=== PATIENT | male | born 1985 | race Hispanic/Latino ===

== ENCOUNTER 2018-11-18 19:45 | Emergency (ER) | payer OTHER, SELFPAY | END 2018-11-18 20:16 | disposition home or self-care (01) | LOC: ERS 19:45 | DX: J11.1 Influenza due to unidentified influenza virus with other respiratory manifestations (principal); F17.210 Nicotine dependence, cigarettes, uncomplicated | CPT/HCPCS: 99283 ==

== ENCOUNTER 2018-11-22 21:34 | Emergency (ER) | payer SELFPAY ==
--- NOTE | 2018-11-22 23:23 | RAD ---
TWO VIEWS CHEST: 11/22/18 HISTORY: Cough. COMPARISON: 11/30/16. FINDINGS: Normal cardiac silhouette. The lungs and pleural spaces are clear. No pneumothorax or osseous abnorma lities. IMPRESSION: No acute cardiopulmonary process. POS: [facility]LY[facility]
== END 2018-11-22 23:24 | disposition home or self-care (01) ==
LOC: ERS 21:34
DX: J11.1 Influenza due to unidentified influenza virus with other respiratory manifestations (principal); F17.210 Nicotine dependence, cigarettes, uncomplicated
CPT/HCPCS: 71046

== ENCOUNTER 2019-06-21 12:27 | Emergency (ER) | payer OTHER, SELFPAY ==
--- NOTE | 2019-06-21 12:57 | RAD ---
Radiograph right ankle 3 views: DATE: 06/21/2019 HISTORY: 34-year-old male with "injury." Lateral ankle pain since last week. COMPARISON: 03/09/2017 FINDINGS: No acute fracture is identified. Ankle mortise is congruent. Talar dome is maintained. Lateral metall ic plate and screws from distal fibular diaphysis to lateral malleolus. Small metallic plate at posterior medial cortical surface of distal tibial metaphysis. Transversely oriented lucency track fr om previously removed screw across distal tibial metaphysis and adjacent portion of distal fibular metadiaphysis. No significant interval change detected in the bones, but there is focal soft tissue s welling lateral to the distal fibular metadiaphysis. IMPRESSION: 1.) No acute fracture. 2) status post open reduction internal fixation of distal fibula, old. 3) focal soft tissue swelling lateral aspect of upper ankle.
== END 2019-06-21 13:12 | disposition home or self-care (01) ==
LOC: ERS 12:27
DX: S93.401A Sprain of unspecified ligament of right ankle, initial encounter (principal); F17.210 Nicotine dependence, cigarettes, uncomplicated; X50.1XXA Overexertion from prolonged static or awkward postures, initial encounter

== ENCOUNTER 2019-07-03 20:26 | Emergency (ER) | payer SELFPAY ==
[2019-07-03] MEDS ORDERED: Lidocaine 1% w/Epinephrine 1:100K 20 ML VIAL ONE (21:07)
--- NOTE | 2019-07-03 21:46 | RAD ---
Right ankle 3 view Indication: Right ankle wound FINDINGS: Reference made to 06/21/2019 exam. Plate and screw fixation of distal right fibula with adjacent prior screw track is noted. Hardware is similar. No new osseous abnormality. Stable focal soft tissue prominence of the lateral aspect of the distal right leg. Impression: Stable appearing postoperative distal right leg. Transcribed Date/Time: 07/03/2019 10:02 PM
[2019-07-03 22:06] LABS: #Basophils 0.1 thou/uL (0.0-0.2); #Eosinphils 0.3 thou/uL (0.0-0.7); #Lymphocytes 2.4 thou/uL (1.20-3.40); #Monocytes 0.7 thou/uL (0.11-0.59); #Neutrophils 7.4 thou/uL (1.40-6.50); %Basophils 0.8 % (0.0-1.0); %Eosinophils 2.9 % (0.0-10.0); %Lymphocytes 21.8 % (21.0-51.0); %Monocytes 6.1 % (0.0-10.0); %Neutrophils 68.4 % (42.0-75.0); Hemoglobin 14.1 g/dL (14.0-18.0); Mean Corpuscular HGB CONC 34.9 g/dL (32.0-36.0); Mean Corpuscular Hemoglobin 31.4 pg (27.0-31.0); Mean Platelet Volume 9.3 fL (7.4-10.4); Platelet Count 209 thou/uL (130-400); RBC Distribution Width 11.7 % (11.5-14.5); Red Blood Cell (RBC) Count 4.51 mill/uL (4.70-6.10); White Blood Cell (WBC) Count 10.8 thou/uL (4.8-10.8)
[2019-07-03 22:13] LABS: ALT (SGPT) 22 U/L (8-55); AST (SGOT) 21 U/L (5-34); Albumin 4.2 g/dL (3.5-5.0); Alkaline Phosphatase 95 U/L (40-110); Anion Gap 12 mmol/L (10-20); BUN (Urea Nitrogen) 17 mg/dL (8.9-20.6); Bilirubin, Total 0.4 mg/dL (0.2-1.2); Calc. Creatinine Clearance 0 mL/min (70-130); Calcium 8.9 mg/dL (7.8-10.44); Carbon Dioxide 26 mmol/L (22-29); Chloride 106 mmol/L (98-107); Estimated GFR-MDRD 89; Globulin 3.1 g/dL (2.4-3.5); Glucose 120 mg/dL (70-105); Potassium 3.9 mmol/L (3.5-5.1); Protein, Total 7.3 g/dL (6.0-8.3); Sodium 140 mmol/L (136-145)
== END 2019-07-03 22:59 | disposition home or self-care (01) ==
LOC: ERS 20:26
DX: L02.415 Cutaneous abscess of right lower limb (principal); F17.210 Nicotine dependence, cigarettes, uncomplicated
CPT/HCPCS: 10060; 36415; 80053; 83605; 85025; 87040; 87149

== ENCOUNTER 2020-01-12 09:26 | Emergency (ER) | payer SELFPAY ==
[2020-01-12] MEDS ORDERED: Lidocaine 1% w/Epinephrine 1:100K 20 ML VIAL ONE (09:47)
[2020-01-12] MEDS ORDERED: Adacel (T-DAP) 0.5 ML SYRINGE ONE (10:54)
--- NOTE | 2020-01-12 11:03 | RAD ---
RIGHT ANKLE 3 VIEWS: HISTORY: Boil on ankle. FINDINGS: Postoperative changes of the ankle are noted. Retention device is seen across the tibia and fibula a s well as a plate and screws along the distal fibula. Soft tissue changes are seen adjacent to the d istal fibula, but I do not see any definite underlying changes that would suggest osteomyelitis. IMPRESSION: Postop change of the distal fibula. No definitive evidence for underlying osteomyelitis. POS: [facility]ATSON
== END 2020-01-12 11:15 | disposition home or self-care (01) ==
LOC: ERS 09:26
DX: L02.415 Cutaneous abscess of right lower limb (principal); Z79.899 Other long term (current) drug therapy
CPT/HCPCS: 10060; 90471; 90715

== ENCOUNTER 2020-05-12 07:12 | Emergency (ER) | payer SELFPAY ==
[2020-05-12] MEDS ORDERED: Ketorolac Tromethamine 30 MG/ML VIAL ONE (07:32)
[2020-05-12] MEDS ORDERED: Acetaminophen 500 MG TAB ONE (07:32)
--- NOTE | 2020-05-12 07:56 | RAD ---
XR Ankle Rt 3 View STANDARD INDICATION: Increased medial ankle pain COMPARISON: January 12, 2020 FINDINGS: Bones: The healed instrumented fibular and lateral malleoli or fracture is unchanged. The radiolucent syndesmotic cable is unchanged in appearance. Ankle mortise: Symmetric. Talar Dome: Intact. Subtalar joint: Normal. Visualized hindfoot: Normal. Periarticular soft tissues: Normal. IMPRESSION: 1. No acute fracture or subluxation demonstrated. 2. Healed posttraumatic and postsurgical change of the right ankle
== END 2020-05-12 08:16 | disposition home or self-care (01) ==
LOC: ERS 07:12
DX: M25.471 Effusion, right ankle (principal)
CPT/HCPCS: 96372; J1885

== ENCOUNTER 2021-05-20 15:13 | Emergency (ER) | payer SELFPAY ==
[2021-05-20 15:48] LABS: Bacteria/HPF None Seen HPF (None Seen); Bilirubin Negative (Negative); Blood, Urine 1+ (Negative); Clarity Clear (Clear); Glucose, Urine (Dipstick) Normal (Negative); Ketone, Urine Trace mg/dL (Negative); Leukocyte Negative Leu/uL (Negative); Nitrite Negative (Negative); Protein, Urine (Dipstick) 100 mg/dL (Neg-Trace); RBC/HPF 0-3 HPF (0-3); Specific Gravity, Urine 1.023 (1.002-1.036); Squamous Epithelial 0-3 HPF (0-3); Urobilinogen Normal mg/dL (Less than 2)
[2021-05-20 15:55] LABS: #Lymphocytes 1.5 thou/uL (1.20-3.40); #Monocytes 0.8 thou/uL (0.11-0.59); #Neutrophils 7.2 thou/uL (1.40-6.50); %Basophils 0.1 % (0.0-1.0); %Eosinophils 0.3 % (0.0-10.0); %Lymphocytes 16.1 % (21.0-51.0); %Neutrophils 75.5 % (42.0-75.0); Hemoglobin 16.5 g/dL (14.0-18.0); Mean Corpuscular HGB CONC 35.7 g/dL (32.0-36.0); Mean Corpuscular Volume 89.6 fL (78.0-98.0); Mean Platelet Volume 9.1 fL (7.4-10.4); Platelet Count 200 thou/uL (130-400); RBC Distribution Width 11.7 % (11.5-14.5); Red Blood Cell (RBC) Count 5.18 mill/uL (4.70-6.10); White Blood Cell (WBC) Count 9.5 thou/uL (4.8-10.8)
[2021-05-20] MEDS ORDERED: Ondansetron ODT 4 MG TAB ONE (16:01)
[2021-05-20 16:14] LABS: ALT (SGPT) 31 U/L (8-55); AST (SGOT) 20 U/L (5-34); Albumin 4.3 g/dL (3.5-5.0); Alkaline Phosphatase 76 U/L (40-110); Anion Gap 16 mmol/L (10-20); BUN (Urea Nitrogen) 11 mg/dL (8.9-20.6); Bilirubin, Total 0.9 mg/dL (0.2-1.2); Calc. Creatinine Clearance 0 mL/min (70-130); Calcium 9.6 mg/dL (7.8-10.44); Carbon Dioxide 25 mmol/L (22-29); Chloride 97 mmol/L (98-107); Globulin 3.4 g/dL (2.4-3.5); Glucose 160 mg/dL (70-105); Lipase 4 U/L (8-78); Potassium 3.8 mmol/L (3.5-5.1); Protein, Total 7.7 g/dL (6.0-8.3); Sodium 134 mmol/L (136-145)
[2021-05-20] MEDS ORDERED: Ondansetron PF 4 MG/2 ML Vial ONE (17:22)
[2021-05-20] MEDS ORDERED: Promethazine HCl 25 MG/ML VIAL ONE (17:52)
== END 2021-05-20 18:50 | disposition home or self-care (01) ==
LOC: ERS 15:13
DX: U07.1 COVID-19 (principal)
CPT/HCPCS: 36415; 80053; 81003; 81015; 83690; 85025; 93005; 96365; 96372; 96375; J0500; J2405; J2550; Q0162

== ENCOUNTER 2021-09-29 12:24 | Emergency (ER) | payer SELFPAY, OTHER | END 2021-09-29 14:19 | disposition left against medical advice (07) | LOC: ERS 12:24 | DX: Z53.21 Procedure and treatment not carried out due to patient leaving prior to being seen by health care provider (principal) ==

== ENCOUNTER 2023-08-28 10:29 | Emergency (ER) | payer SELFPAY, OTHER ==
[2023-08-28] MEDS ORDERED: Ondansetron PF 4 MG/2 ML Vial ONE (11:56)
[2023-08-28 12:29] LABS: SARS-CoV-2 NAA Rapid Test Not Detected (NotDetected)
== END 2023-08-28 13:15 | disposition home or self-care (01) ==
LOC: ERS 10:29
DX: J10.1 Influenza due to other identified influenza virus with other respiratory manifestations (principal); E11.9 Type 2 diabetes mellitus without complications; F17.200 Nicotine dependence, unspecified, uncomplicated; Z20.822 Contact with and (suspected) exposure to COVID-19; Z79.84 Long term (current) use of oral hypoglycemic drugs
CPT/HCPCS: 96361; 96374; J2405

== ENCOUNTER 2023-08-28 21:19 | Inpatient (IN) | payer OTHER, SELFPAY ==
[2023-08-28 22:14] LABS: #Eosinphils 0.1 thou/uL (0.0-0.7); #Monocytes 0.5 thou/uL (0.11-0.59); #Neutrophils 4.4 thou/uL (1.40-6.50); %Basophils 0.3 % (0.0-1.0); %Eosinophils 1.3 % (0.0-10.0); %Lymphocytes 18.8 % (21.0-51.0); %Monocytes 8.4 % (0.0-10.0); %Neutrophils 70.9 % (42.0-75.0); Hematocrit 39.2 % (42.0-52.0); Hemoglobin 13.6 g/dL (14.0-18.0); Mean Corpuscular HGB CONC 34.7 g/dL (32.0-36.0); Mean Corpuscular Hemoglobin 31.2 pg (27.0-31.0); Mean Corpuscular Volume 89.9 fl (78.0-98.0); Platelet Count 151 10x3/uL (130-400); Red Blood Cell (RBC) Count 4.36 mill/uL (4.70-6.10); White Blood Cell (WBC) Count 6.2 10x3/uL (4.8-10.8)
[2023-08-28 22:29] LABS: ALT (SGPT) 14 U/L (8-55); AST (SGOT) 14 U/L (5-34); Albumin 3.7 g/dL (3.5-5.0); Alkaline Phosphatase 111 U/L (40-110); Anion Gap 16 mmol/L (10-20); BUN (Urea Nitrogen) 14 mg/dL (8.9-20.6); Bilirubin, Total 0.3 mg/dL (0.2-1.2); Calc. Creatinine Clearance 0 mL/min (70-130); Calcium 8.7 mg/dL (7.8-10.44); Carbon Dioxide 21 mmol/L (22-29); Chloride 100 mmol/L (98-107); Estimated GFR 106; Globulin 2.9 g/dL (2.4-3.5); Potassium 4.2 mmol/L (3.5-5.1); Protein, Total 6.6 g/dL (6.0-8.3); Sodium 133 mmol/L (136-145)
[2023-08-28 22:31] LABS: Glucose 539 mg/dL (70-105)
[2023-08-28 22:33] LABS: Troponin I 0.058 ng/mL (< 0.028)
[2023-08-28] MEDS ORDERED: Insulin Regular 300 UNITS/3 ML VIAL ONE (22:49)
[2023-08-28] MEDS ORDERED: Aspirin Chewable 81 MG TAB ONE (22:49)
[2023-08-28 23:37] LABS: Acetaminophen Less than 10 mcg/mL (10.0-30.0); Alcohol Less than 10.0 mg/dL (Less than 10); Salicylate Less than 8.0 mg/dL (15.0-30.0)
[2023-08-29] MEDS ORDERED: Dextrose 5% in Water 1,000 ML IV PRN (00:21)
[2023-08-29] MEDS ORDERED: Dextrose 50% Abboject 50 ML SYRINGE SLOW IVP PRN (00:21)
[2023-08-29] MEDS ORDERED: HumaLOG 300 UNITS/3 ML VIAL SC PRN ×2 (00:21)
[2023-08-29] MEDS ORDERED: Acetaminophen 325 MG TAB PO PRN (00:21)
[2023-08-29] MEDS ORDERED: Glucagon 1 MG/ML KIT IM PRN (00:21)
[2023-08-29] MEDS ORDERED: Ondansetron PF 4 MG/2 ML Vial IVP PRN (00:21)
[2023-08-29 01:19] LABS: Hemoglobin A1c 13.9 % (4.0-6.0)
[2023-08-29] MEDS ORDERED: Nitroglycerin 0.4 MG TAB (25 Tab Bottle) SL PRN (01:27)
[2023-08-29 03:01] LABS: Bacteria/HPF None Seen HPF (None Seen); Bilirubin Negative (Negative); Blood, Urine Negative (Negative); CAUTI Indications for Culture Fever or rigors; Clarity Clear (Clear); Glucose, Urine (Dipstick) Greater than 1000 mg/dL (Negative); Ketone, Urine 20 mg/dL (Negative); Leukocyte Negative Leu/uL (Negative); Nitrite Negative (Negative); Protein, Urine (Dipstick) Negative (Neg-Trace); RBC/HPF 0-3 HPF (0-3); Specific Gravity, Urine 1.033 (1.002-1.036); Squamous Epithelial None Seen HPF (0-3); Urobilinogen Normal mg/dL (Less than 2); WBC/HPF 0-3 HPF (0-3)
[2023-08-29 03:04] LABS: Urine Culture Reflex No No
[2023-08-29 03:06] LABS: Amphetamine Not Detected (NotDetected); Barbiturates Screen Not Detected (NotDetected); Benzodiazepine Screen Not Detected (NotDetected); Cocaine Metabolite Screen Not Detected (NotDetected); Methadone Not Detected (NotDetected); Methamphetamine Not Detected (NotDetected); Opiate Screen Not Detected (NotDetected); Oxycodone Screen Not Detected (NotDetected); Phencyclidine (PCP) Not Detected (NotDetected); THC/Cannabinoid Screen Not Detected (NotDetected); Tricyclic Screen Not Detected (NotDetected)
[2023-08-29 08:37] LABS: #Eosinphils 0.1 thou/uL (0.0-0.7); #Monocytes 0.6 thou/uL (0.11-0.59); %Basophils 0.4 % (0.0-1.0); %Eosinophils 1.5 % (0.0-10.0); %Lymphocytes 19.4 % (21.0-51.0); %Neutrophils 70.6 % (42.0-75.0); Hematocrit 40.8 % (42.0-52.0); Hemoglobin 13.6 g/dL (14.0-18.0); Mean Corpuscular HGB CONC 33.3 g/dL (32.0-36.0); Mean Corpuscular Hemoglobin 30.6 pg (27.0-31.0); Mean Corpuscular Volume 91.9 fl (78.0-98.0); Platelet Count 132 10x3/uL (130-400); RBC Distribution Width 12.2 % (11.5-14.5); Red Blood Cell (RBC) Count 4.44 mill/uL (4.70-6.10); White Blood Cell (WBC) Count 7.1 10x3/uL (4.8-10.8)
[2023-08-29 08:55] LABS: Anion Gap 11 mmol/L (10-20); BUN (Urea Nitrogen) 11 mg/dL (8.9-20.6); Calc. Creatinine Clearance 128 mL/min (70-130); Calcium 8.9 mg/dL (7.8-10.44); Carbon Dioxide 29 mmol/L (22-29); Cardiac Risk 4.9 (Less than 4.5); Chloride 103 mmol/L (98-107); Cholesterol 128 mg/dl (< 200 Desired); Estimated GFR 120; Glucose 217 mg/dL (70-105); HDL Cholesterol 26 mg/dL (>60 Neg Risk); LDL Cholesterol, Calculated 80 mg/dL; Potassium 4.4 mmol/L (3.5-5.1); Sodium 139 mmol/L (136-145); Triglycerides 109 mg/dL (Less than 150)
[2023-08-29 08:59] LABS: Troponin I 0.064 ng/mL (< 0.028)
[2023-08-29] MEDS ORDERED: Famotidine 20 MG TAB ONE (09:10)
[2023-08-29] MEDS ORDERED: Aspirin Chewable 81 MG TAB ONE (09:10)
[2023-08-29] MEDS: Insulin Glargine 30 UNITS/0.3 ML VIAL SC SCH ×2 (09:23→19:46)
[2023-08-29] MEDS: Famotidine 20 MG TAB PO SCH ×2 (09:23→19:47)
[2023-08-29] MEDS: Aspirin 81 mg Enteric Coated Tablet PO SCH (09:23)
[2023-08-29] MEDS: Oseltamivir 75 MG CAP PO SCH ×2 (09:32→19:47)
[2023-08-29 15:59] VITALS: BMI 21.7
[2023-08-30] MEDS: Aspirin 81 mg Enteric Coated Tablet PO SCH (08:24)
[2023-08-30] MEDS: Famotidine 20 MG TAB PO SCH ×2 (08:24→21:22)
[2023-08-30] MEDS: Oseltamivir 75 MG CAP PO SCH ×2 (08:24→21:22)
[2023-08-30] MEDS: Insulin Glargine 30 UNITS/0.3 ML VIAL SC SCH ×2 (08:25→21:22)
[2023-08-30 08:55] LABS: Amphetamine Not Detected (NotDetected); Barbiturates Screen Not Detected (NotDetected); Benzodiazepine Screen Not Detected (NotDetected); Cocaine Metabolite Screen Detected (NotDetected); Methadone Not Detected (NotDetected); Methamphetamine Not Detected (NotDetected); Opiate Screen Not Detected (NotDetected); Oxycodone Screen Not Detected (NotDetected); Phencyclidine (PCP) Not Detected (NotDetected); THC/Cannabinoid Screen Not Detected (NotDetected); Tricyclic Screen Not Detected (NotDetected)
[2023-08-31] MEDS: Aspirin 81 mg Enteric Coated Tablet PO SCH (08:52)
[2023-08-31] MEDS: Insulin Glargine 30 UNITS/0.3 ML VIAL SC SCH (08:52)
[2023-08-31] MEDS: Oseltamivir 75 MG CAP PO SCH (08:52)
[2023-08-31] MEDS: Famotidine 20 MG TAB PO SCH (08:53)
[2023-08-31 09:07] VITALS: BP 100/69; TEMP 98.1
== END 2023-08-31 15:00 | disposition home or self-care (01) | DRG 918 ==
LOC: ERS 21:19 → 2SW 08-29 00:26 → ERHOLD 08-29 00:26 → INTOOBSV 08-29 00:26 → 2SW 08-29 15:17 → OBSVTOIN 08-30 15:41
PROVIDERS: ADMIT Student in an Organized Health Care Education/Training Program; ATTEND Internal Medicine
DX: T40.5X1A Poisoning by cocaine, accidental (unintentional), initial encounter (principal); J10.1 Influenza due to other identified influenza virus with other respiratory manifestations; R07.89 Other chest pain; F17.210 Nicotine dependence, cigarettes, uncomplicated; E11.9 Type 2 diabetes mellitus without complications; F10.90 Alcohol use, unspecified, uncomplicated; Z79.899 Other long term (current) drug therapy; Z98.890 Other specified postprocedural states; Z71.51 Drug abuse counseling and surveillance of drug abuser; Z71.6 Tobacco abuse counseling
CPT/HCPCS: 36415; 36416; 71045; 80048; 80053; 80061; 80306; 80307; 81001; 83036; 84484; 85025; 93005; 93306; 96372; 96374; G0378; J1650; J1815

== ENCOUNTER 2023-10-30 22:36 | Emergency (ER) | payer SELFPAY ==
[2023-10-31 01:42] LABS: #Basophils 0.1 thou/uL (0.0-0.2); #Eosinphils 0.2 thou/uL (0.0-0.7); #Monocytes 0.4 thou/uL (0.11-0.59); #Neutrophils 4.9 thou/uL (1.40-6.50); %Basophils 0.7 % (0.0-1.0); %Eosinophils 2.1 % (0.0-10.0); %Monocytes 5.1 % (0.0-10.0); %Neutrophils 57.7 % (42.0-75.0); Hematocrit 41.9 % (42.0-52.0); Hemoglobin 14.1 g/dL (14.0-18.0); Mean Corpuscular HGB CONC 33.7 g/dL (32.0-36.0); Mean Corpuscular Hemoglobin 30.5 pg (27.0-31.0); Mean Corpuscular Volume 90.7 fl (78.0-98.0); Mean Platelet Volume 11.2 fL (7.4-10.4); Platelet Count 188 10x3/uL (130-400); RBC Distribution Width 12.6 % (11.5-14.5); Red Blood Cell (RBC) Count 4.62 mill/uL (4.70-6.10); White Blood Cell (WBC) Count 8.5 10x3/uL (4.8-10.8)
[2023-10-31 02:13] LABS: ALT (SGPT) 17 U/L (8-55); AST (SGOT) 17 U/L (5-34); Albumin 3.9 g/dL (3.5-5.0); Alkaline Phosphatase 115 U/L (40-110); Anion Gap 13 mmol/L (10-20); BUN (Urea Nitrogen) 23 mg/dL (8.9-20.6); Bilirubin, Total 0.2 mg/dL (0.2-1.2); Calc. Creatinine Clearance 0 mL/min (70-130); Calcium 9.2 mg/dL (7.8-10.44); Carbon Dioxide 27 mmol/L (22-29); Chloride 99 mmol/L (98-107); Estimated GFR 99; Globulin 2.5 g/dL (2.4-3.5); Glucose 344 mg/dL (70-105); Potassium 4.4 mmol/L (3.5-5.1); Protein, Total 6.4 g/dL (6.0-8.3); Sodium 135 mmol/L (136-145)
[2023-10-31] MEDS ORDERED: predniSONE 20 MG TAB ONE (02:41)
[2023-10-31] MEDS ORDERED: valACYclovir 500 MG TAB ONE ×2 (02:42→02:43)
== END 2023-10-31 02:52 | disposition home or self-care (01) ==
LOC: ERS 22:36
DX: G51.0 Bell's palsy (principal); E11.9 Type 2 diabetes mellitus without complications; Z79.84 Long term (current) use of oral hypoglycemic drugs
CPT/HCPCS: 36415; 70450; 80053; 85025; J7512

== ENCOUNTER 2023-11-05 13:06 | Inpatient (IN) | payer SELFPAY ==
[2023-11-05] MEDS ORDERED: Aspirin Chewable 81 MG TAB ONE (14:57)
[2023-11-05 15:59] LABS: #Monocytes 0.2 thou/uL (0.11-0.59); #Neutrophils 10.8 thou/uL (1.40-6.50); %Basophils 0.2 % (0.0-1.0); %Eosinophils 0.1 % (0.0-10.0); %Lymphocytes 7.6 % (21.0-51.0); %Monocytes 1.6 % (0.0-10.0); %Neutrophils 90.2 % (42.0-75.0); Hematocrit 42.9 % (42.0-52.0); Hemoglobin 14.9 g/dL (14.0-18.0); Mean Corpuscular HGB CONC 34.7 g/dL (32.0-36.0); Mean Corpuscular Hemoglobin 31.2 pg (27.0-31.0); Mean Corpuscular Volume 89.9 fl (78.0-98.0); Mean Platelet Volume 11.7 fL (7.4-10.4); Platelet Count 221 10x3/uL (130-400); RBC Distribution Width 12.7 % (11.5-14.5); Red Blood Cell (RBC) Count 4.77 mill/uL (4.70-6.10)
[2023-11-05 16:27] LABS: Troponin I 0.164 ng/mL (< 0.028)
[2023-11-05 16:29] LABS: ALT (SGPT) 17 U/L (8-55); AST (SGOT) 16 U/L (5-34); Alkaline Phosphatase 110 U/L (40-110); Anion Gap 17 mmol/L (10-20); BUN (Urea Nitrogen) 19 mg/dL (8.9-20.6); Bilirubin, Total 0.3 mg/dL (0.2-1.2); Calc. Creatinine Clearance 0 mL/min (70-130); Calcium 9.1 mg/dL (7.8-10.44); Carbon Dioxide 24 mmol/L (22-29); Chloride 94 mmol/L (98-107); Critical Call Chemistry NUR.MC19@1628; Estimated GFR 100; Globulin 2.9 g/dL (2.4-3.5); Glucose 461 mg/dL (70-105); Lipase 22 U/L (8-78); Potassium 5.1 mmol/L (3.5-5.1); Protein, Total 6.9 g/dL (6.0-8.3); Sodium 130 mmol/L (136-145)
[2023-11-05] MEDS ORDERED: Acetaminophen 325 MG TAB PO PRN (17:13)
[2023-11-05] MEDS ORDERED: Acetaminophen 650 MG Suppository PR PRN (17:13)
[2023-11-05] MEDS ORDERED: Ondansetron PF 4 MG/2 ML Vial IVP PRN (17:13)
[2023-11-05] MEDS ORDERED: Ondansetron ODT 4 MG TAB PO PRN (17:13)
[2023-11-05] MEDS ORDERED: Nitroglycerin 0.4 MG TAB (25 Tab Bottle) SL PRN (17:14)
[2023-11-05] MEDS ORDERED: Insulin Regular 300 UNITS/3 ML VIAL ONE (17:16)
[2023-11-05] MEDS ORDERED: Enoxaparin 60 MG (0.6 mL) SYRINGE ONE (17:16)
[2023-11-05] MEDS ORDERED: Dextrose 5% in Water 1,000 ML IV PRN (17:29)
[2023-11-05] MEDS ORDERED: Dextrose 50% Abboject 50 ML SYRINGE SLOW IVP PRN (17:29)
[2023-11-05] MEDS ORDERED: Glucagon 1 MG/ML KIT IM PRN (17:29)
[2023-11-05 17:49] LABS: Alcohol Less than 10.0 mg/dL (Less than 10); Magnesium 1.9 mg/dL (1.6-2.6)
[2023-11-05 17:51] LABS: Base Excess -3.2 mEq/L (-2.0 to +3.0); Calcium, Ionized (venous) 1.07 mmol/L (1.16-1.32); Chloride (VBG) 100 mmol/L (98-106); Hematocrit-VBG 43 % (42.0-52.0); Hemoglobin (Hb) 14.6 g/dL (13.2-17.3); Potassium (VBG) 3.91 mmol/L (3.70-5.30); Sodium 134 mmol/L (133-146); pH (venous) 7.391 (7.32-7.43)
[2023-11-05 18:27] LABS: Critical Call Chem Troponin I NUR.MC19@1827; Troponin I 0.223 ng/mL (< 0.028)
[2023-11-05] MEDS ORDERED: Nitroglycerin 2% Ointment 1 INCH/1 GM Packet ONE (20:01)
[2023-11-05] MEDS ORDERED: Famotidine 20 MG TAB ONE (20:02)
[2023-11-05] MEDS ORDERED: valACYclovir 500 MG TAB ONE (20:02)
[2023-11-05 20:18] LABS: Hemoglobin A1c 12.1 % (4.0-6.0)
[2023-11-05] MEDS: Famotidine 20 MG TAB PO SCH (20:33)
[2023-11-05] MEDS: valACYclovir 500 MG TAB PO SCH (20:33)
[2023-11-05] MEDS: Sodium Chloride 0.9% 1,000 ML IV SCH (20:52)
[2023-11-05] MEDS: Nitroglycerin 2% Ointment 1 INCH/1 GM Packet TOP SCH (21:53)
[2023-11-05] MEDS ORDERED: HumaLOG 300 UNITS/3 ML VIAL ONE (22:05)
[2023-11-05] MEDS: HumaLOG 300 UNITS/3 ML VIAL SC PRN (22:09)
[2023-11-05 22:20] LABS: Bacteria/HPF None Seen HPF (None Seen); Bilirubin Negative (Negative); Blood, Urine Negative (Negative); CAUTI Indications for Culture Alt mental st,lethar; Clarity Clear (Clear); Glucose, Urine (Dipstick) Greater than 1000 mg/dL (Negative); Ketone, Urine 40 mg/dL (Negative); Leukocyte Negative Leu/uL (Negative); Nitrite Negative (Negative); Protein, Urine (Dipstick) Negative (Neg-Trace); RBC/HPF 0-3 HPF (0-3); Specific Gravity, Urine 1.029 (1.002-1.036); Squamous Epithelial None Seen HPF (0-3); Urobilinogen Normal mg/dL (Less than 2); WBC/HPF 0-3 HPF (0-3); pH, Urine 6.5 (5.0-9.0)
[2023-11-05 22:26] LABS: Amphetamine Not Detected (NotDetected); Barbiturates Screen Not Detected (NotDetected); Benzodiazepine Screen Not Detected (NotDetected); Cocaine Metabolite Screen Not Detected (NotDetected); Methadone Not Detected (NotDetected); Methamphetamine Not Detected (NotDetected); Opiate Screen Not Detected (NotDetected); Oxycodone Screen Not Detected (NotDetected); Phencyclidine (PCP) Not Detected (NotDetected); THC/Cannabinoid Screen Not Detected (NotDetected); Tricyclic Screen Not Detected (NotDetected)
[2023-11-05 22:46] LABS: Urine Culture Reflex No No
[2023-11-06 00:14] LABS: Critical Call Chem Troponin I NUR.SM15@0014; Troponin I 0.261 ng/mL (< 0.028)
[2023-11-06] MEDS: Insulin Glargine 30 UNITS/0.3 ML VIAL SC SCH ×2 (00:52→22:22)
[2023-11-06] MEDS: Polyvinyl Alcohol 1.4%/Povidone 0.6% Opth Drops L EYE SCH (00:53)
[2023-11-06 04:16] LABS: #Eosinphils 0.1 thou/uL (0.0-0.7); #Monocytes 0.4 thou/uL (0.11-0.59); #Neutrophils 6.4 thou/uL (1.40-6.50); %Basophils 0.4 % (0.0-1.0); %Eosinophils 1.1 % (0.0-10.0); %Lymphocytes 26.3 % (21.0-51.0); %Monocytes 4.6 % (0.0-10.0); %Neutrophils 67.2 % (42.0-75.0); Hematocrit 38.4 % (42.0-52.0); Hemoglobin 13.2 g/dL (14.0-18.0); Mean Corpuscular HGB CONC 34.4 g/dL (32.0-36.0); Mean Corpuscular Hemoglobin 31.1 pg (27.0-31.0); Mean Corpuscular Volume 90.4 fl (78.0-98.0); Mean Platelet Volume 11.8 fL (7.4-10.4); Platelet Count 161 10x3/uL (130-400); RBC Distribution Width 12.9 % (11.5-14.5); Red Blood Cell (RBC) Count 4.25 mill/uL (4.70-6.10); White Blood Cell (WBC) Count 9.4 10x3/uL (4.8-10.8)
[2023-11-06 04:55] LABS: Anion Gap 12 mmol/L (10-20); BUN (Urea Nitrogen) 18 mg/dL (8.9-20.6); Calc. Creatinine Clearance 115 mL/min (70-130); Calcium 8.5 mg/dL (7.8-10.44); Carbon Dioxide 27 mmol/L (22-29); Chloride 100 mmol/L (98-107); Cholesterol 185 mg/dl (< 200 Desired); Estimated GFR 116; Glucose 314 mg/dL (70-105); HDL Cholesterol 31 mg/dL (>60 Neg Risk); Potassium 3.7 mmol/L (3.5-5.1); Sodium 135 mmol/L (136-145); Triglycerides 474 mg/dL (Less than 150)
[2023-11-06 05:00] LABS: Magnesium 1.8 mg/dL (1.6-2.6)
[2023-11-06] MEDS: Insulin Regular 300 UNITS/3 ML VIAL SC PRN (06:07)
[2023-11-06] MEDS ORDERED: predniSONE 20 MG TAB PO SCH (08:00)
[2023-11-06] MEDS ORDERED: Non-Formulary Item 1 EACH (Prednisone [Prednisone] 10 MG Tablet) PO SCH (09:00)
[2023-11-06] MEDS ORDERED: Non-Formulary Item 1 EACH (Valacyclovir Hcl [Valacyclovir] 1,000 MG Tablet) PO SCH (09:00)
[2023-11-06] MEDS ORDERED: Aspirin Chewable 81 MG TAB ONE (09:11)
[2023-11-06] MEDS ORDERED: Enoxaparin 60 MG (0.6 mL) SYRINGE ONE (09:12)
[2023-11-06] MEDS ORDERED: valACYclovir 500 MG TAB ONE (09:12)
[2023-11-06] MEDS ORDERED: Famotidine 20 MG TAB ONE (09:12)
[2023-11-06] MEDS: Enoxaparin 60 MG (0.6 mL) SYRINGE SC SCH (09:32)
[2023-11-06] MEDS: Aspirin Chewable 81 MG TAB PO SCH (09:32)
[2023-11-06] MEDS: valACYclovir 500 MG TAB PO SCH (09:36)
[2023-11-06] MEDS: predniSONE 20 MG TAB PO SCH (14:57)
[2023-11-06] MEDS: Atorvastatin Calcium 40 MG TAB PO SCH ×2 (15:25→15:48)
[2023-11-07] MEDS ORDERED: Communication Order-Pharmacy FS SCH (06:00)
[2023-11-07 06:26] LABS: #Eosinphils 0.1 thou/uL (0.0-0.7); #Monocytes 0.5 thou/uL (0.11-0.59); #Neutrophils 5.4 thou/uL (1.40-6.50); %Basophils 0.4 % (0.0-1.0); %Eosinophils 1.4 % (0.0-10.0); %Lymphocytes 25.3 % (21.0-51.0); %Monocytes 5.7 % (0.0-10.0); Hematocrit 44.2 % (42.0-52.0); Mean Corpuscular HGB CONC 33.9 g/dL (32.0-36.0); Mean Corpuscular Hemoglobin 30.4 pg (27.0-31.0); Mean Corpuscular Volume 89.7 fl (78.0-98.0); Mean Platelet Volume 11.2 fL (7.4-10.4); Platelet Count 182 10x3/uL (130-400); RBC Distribution Width 12.7 % (11.5-14.5); Red Blood Cell (RBC) Count 4.93 mill/uL (4.70-6.10); White Blood Cell (WBC) Count 8.1 10x3/uL (4.8-10.8)
[2023-11-07] MEDS: Sodium Chloride 0.9% 1,000 ML IV SCH (06:33)
[2023-11-07 06:52] LABS: Anion Gap 14 mmol/L (10-20); BUN (Urea Nitrogen) 19 mg/dL (8.9-20.6); Calc. Creatinine Clearance 100 mL/min (70-130); Carbon Dioxide 29 mmol/L (22-29); Chloride 97 mmol/L (98-107); Estimated GFR 113; Glucose 240 mg/dL (70-105); Magnesium 2.3 mg/dL (1.6-2.6); Potassium 5.3 mmol/L (3.5-5.1); Sodium 135 mmol/L (136-145)
[2023-11-07 07:46] VITALS: BMI 21.3
[2023-11-07] MEDS ORDERED: Iopamidol 370 76% 100 ML VIAL ONE (10:09)
[2023-11-07] MEDS ORDERED: Midazolam HCl 2 mg/2 ml Vial ONE (10:51)
[2023-11-07] MEDS ORDERED: fentaNYL 50 mcg/mL 1 mL Vial ONE ×2 (10:51→13:08)
[2023-11-07] MEDS ORDERED: Nitroglycerin 50 MG/250 ML BOT 0 ML ONE (10:52)
[2023-11-07] MEDS ORDERED: Lidocaine 1% (PF) 30 ML VIAL ONE (10:52)
[2023-11-07] MEDS ORDERED: Heparin 10,000 UNITS/ 10 ML VIAL ONE (10:52)
[2023-11-07] MEDS ORDERED: Atropine Sulfate 1 mg/10 ml Syringe ONE (11:54)
[2023-11-07] MEDS ORDERED: TICAGRELOR 90 MG TABLET ONE (12:57)
[2023-11-07] MEDS: Sodium Chloride 0.9% 500 ML IV SCH (13:50)
[2023-11-07] MEDS: Insulin Regular 300 UNITS/3 ML VIAL IVP SCH (15:15)
[2023-11-07] MEDS: Dextrose 50% Abboject 50 ML SYRINGE SLOW IVP SCH (15:17)
[2023-11-07] MEDS: Sodium Polystyrene Sulfonate 15 GM (60 mL) BOT PO SCH (15:19)
[2023-11-07] MEDS: Acetaminophen/Codeine 30-300mg Tablet PO PRN (15:28)
[2023-11-07] MEDS: Atorvastatin Calcium 40 MG TAB PO SCH (20:23)
[2023-11-08 07:12] LABS: #Eosinphils 0.1 thou/uL (0.0-0.7); #Monocytes 0.4 thou/uL (0.11-0.59); #Neutrophils 5.7 thou/uL (1.40-6.50); %Basophils 0.5 % (0.0-1.0); %Eosinophils 1.4 % (0.0-10.0); %Lymphocytes 24.2 % (21.0-51.0); %Monocytes 4.7 % (0.0-10.0); %Neutrophils 68.8 % (42.0-75.0); Hematocrit 42.3 % (42.0-52.0); Mean Corpuscular HGB CONC 33.1 g/dL (32.0-36.0); Mean Corpuscular Hemoglobin 30.4 pg (27.0-31.0); Mean Platelet Volume 11.9 fL (7.4-10.4); Platelet Count 167 10x3/uL (130-400); RBC Distribution Width 13.2 % (11.5-14.5); White Blood Cell (WBC) Count 8.3 10x3/uL (4.8-10.8)
[2023-11-08 07:35] LABS: Anion Gap 11 mmol/L (10-20); BUN (Urea Nitrogen) 22 mg/dL (8.9-20.6); Calc. Creatinine Clearance 116 mL/min (70-130); Calcium 8.2 mg/dL (7.8-10.44); Carbon Dioxide 26 mmol/L (22-29); Chloride 105 mmol/L (98-107); Estimated GFR 119; Glucose 272 mg/dL (70-105); Magnesium 1.9 mg/dL (1.6-2.6); Potassium 3.7 mmol/L (3.5-5.1); Sodium 138 mmol/L (136-145)
[2023-11-08] MEDS: Clopidogrel Bisulfate 75 MG TAB PO SCH (08:37)
[2023-11-08] MEDS: Magnesium 2 GM/50 ML(in water) 2 GM in Premix 1 BAG IVPB SCH (11:03)
[2023-11-08 17:40] VITALS: BP 102/63; TEMP 97.8
== END 2023-11-08 17:46 | disposition home or self-care (01) | DRG 322 ==
LOC: ERS 13:06 → ERHOLD 17:17 → OBSVTOIN 22:32 → 2SW 11-06 13:42
PROVIDERS: ADMIT Family Medicine; ATTEND Internal Medicine
PROC: 027034Z Dilation of Coronary Artery, One Artery with Drug-eluting Intraluminal Device, Percutaneous Approach (ICD-10-PCS; principal; 2023-11-07)
PROC: 4A023N7 Measurement of Cardiac Sampling and Pressure, Left Heart, Percutaneous Approach (ICD-10-PCS; 2023-11-07)
PROC: B2111ZZ Fluoroscopy of Multiple Coronary Arteries using Low Osmolar Contrast (ICD-10-PCS; 2023-11-07)
DX: I21.4 Non-ST elevation (NSTEMI) myocardial infarction (principal); E87.1 Hypo-osmolality and hyponatremia; F14.10 Cocaine abuse, uncomplicated; E78.5 Hyperlipidemia, unspecified; G51.0 Bell's palsy; E87.5 Hyperkalemia; F17.210 Nicotine dependence, cigarettes, uncomplicated; D72.829 Elevated white blood cell count, unspecified; E11.65 Type 2 diabetes mellitus with hyperglycemia; Z91.148 Patient's other noncompliance with medication regimen for other reason; Z79.84 Long term (current) use of oral hypoglycemic drugs; Z79.899 Other long term (current) drug therapy
CPT/HCPCS: 36415; 36416; 71045; 80048; 80053; 80061; 80306; 80307; 81001; 82805; 83036; 83605; 83690; 83735; 83880; 84145; 84443; 84484; 85025; 85347; 85379; 92928; 93005; 93458; 93798; 94760; 96372; 96374; 99152; 99153; C1760; C1769; C1874; C1887; C9600; G0378; J0461; J1644; J1650; J1815; J2001; J2250; J3010; J3475; J7030; J7050; J7512; J7999; Q9967